=== PATIENT | male | born 1940 | race Caucasian/White ===

== ENCOUNTER 2024-06-04 21:13 | Inpatient (IN) | payer MEDICARE, BC ==
[~2024-06-04] VITALS: Ht 170.2 cm; Wt 68.5 kg
[2024-06-04] MEDS: IV NS 0.9% 500 ML BAG IV ONE (21:24)
[2024-06-04 22:05] LABS: BASOPHILS # (AUTO) 0.1 K/uL (0.0-0.2); BASOPHILS % (AUTO) 0.8 % (0.0-2.0); EOSINOPHILS # (AUTO) 0.4 K/uL (0.0-0.7); EOSINOPHILS % (AUTO) 5.5 % (0.0-6.0); HEMATOCRIT 40 % (39-51); HEMOGLOBIN 13.2 g/dL (13.5-17.5); INR 1.12 (0.91-1.10); LYMPHOCYTES # (AUTO) 1.4 K/uL (0.8-4.8); LYMPHOCYTES % (AUTO) 18.9 % (20.0-44.0); MEAN CORPUSCULAR HEMOGLOBIN 28 PG (26.0-33.0); MEAN CORPUSCULAR HGB CONC 33 g/dl (31.0-36.0); MEAN CORPUSCULAR VOLUME 84 fL (80-96); MONOCYTES # (AUTO) 0.7 K/uL (0.1-1.30); MONOCYTES % (AUTO) 9.7 % (2.0-12.0); NEUTROPHILS % (AUTO) 65.1 % (43.0-81.0); PARTIAL THROMBOPLASTIN TIME 26.5 SEC (24.3-34.3); PLATELET COUNT (AUTO) 218 K/uL (150-450); PROTHROMBIN TIME 11.8 SECS (9.2-11.1); RED BLOOD CELL COUNT(AUTO) 4.77 MIL/uL (4.5-6.0); RED CELL DISTRIBUTION WIDTH 13.8 % (11.5-15.0); WHITE BLOOD COUNT (AUTO) 7.7 K/uL (4.3-11.0)
[2024-06-04 22:06] LABS: CALCIUM, SERUM 8.2 mg/dL (8.5-10.1); CARBON DIOXIDE 30 mmol/L (21-32); CHLORIDE 108 mmol/L (98-107); CREATININE 1.2 mg/dL (0.6-1.3); GLUCOSE 84 mg/dL (74-106); POTASSIUM 3.9 mmol/L (3.5-5.1); SODIUM SERUM 138 mmol/L (136-145); UREA NITROGEN, BLOOD 18 mg/dL (7-18)
[2024-06-04 22:15] LABS: APPEARANCE,URINE CLEAR (CLEAR); BILIRUBIN,URINE NEGATIVE (NEGATIVE); BLOOD, URINE NEGATIVE Ery/uL (NEGATIVE); COLOR,URINE YELLOW (YELLOW); KETONES,URINE NEGATIVE (NEGATIVE); LEUKOCYTE ESTERASE ,URINE NEGATIVE (NEGATIVE); NITRITE, URINE NEGATIVE (NEGATIVE); PROTEIN,URINE NEGATIVE (NEGATIVE); UGLUCOSE NEGATIVE (NEGATIVE)
[2024-06-05] MEDS ORDERED: Z GUARD REMEDY 4 OZ OINT TP PRN
[2024-06-05] MEDS ORDERED: MAGNESIUM HYDROXIDE 30 ML UDC PO PRN
[2024-06-05] MEDS ORDERED: ACETAMINOPHEN 325 MG TABLET PO PRN
[2024-06-05] MEDS ORDERED: MAG HYDROX/AL HYDROX/SIMETH 30 ML UDC PO PRN
[2024-06-05] MEDS ORDERED: ONDANSETRON HCL/PF 4 MG/2 ML VIAL IVP PRN
[2024-06-05 00:56] LABS: ADD URINE CULTURE NO; RBC,URINE 0-2 /HPF (0-2); WBC,URINE NONE SEEN /HPF (0-3)
[2024-06-05 00:57] LABS: BACTERIA,URINE Few /HPF (None Seen)
[2024-06-05 02:46] VITALS: BP 143/75; TEMP 97.5; O2SAT 96
[2024-06-05 04:00] VITALS: BP 154/81; TEMP 98.1; O2SAT 98
[2024-06-05 06:36] LABS: BASOPHILS % (AUTO) 0.6 % (0.0-2.0); EOSINOPHILS # (AUTO) 0.4 K/uL (0.0-0.7); EOSINOPHILS % (AUTO) 6.2 % (0.0-6.0); HEMATOCRIT 39 % (39-51); HEMOGLOBIN 12.7 g/dL (13.5-17.5); LYMPHOCYTES # (AUTO) 1.2 K/uL (0.8-4.8); LYMPHOCYTES % (AUTO) 16.9 % (20.0-44.0); MEAN CORPUSCULAR HEMOGLOBIN 27 PG (26.0-33.0); MEAN CORPUSCULAR HGB CONC 32 g/dl (31.0-36.0); MEAN CORPUSCULAR VOLUME 85 fL (80-96); MONOCYTES # (AUTO) 0.8 K/uL (0.1-1.30); MONOCYTES % (AUTO) 10.8 % (2.0-12.0); NEUTROPHILS # (AUTO) 4.6 K/uL (1.8-8.9); NEUTROPHILS % (AUTO) 65.5 % (43.0-81.0); PLATELET COUNT (AUTO) 207 K/uL (150-450); RED BLOOD CELL COUNT(AUTO) 4.66 MIL/uL (4.5-6.0); RED CELL DISTRIBUTION WIDTH 13.5 % (11.5-15.0)
[2024-06-05 07:02] LABS: CHOLESTEROL 104 mg/dL (<200); HDL CHOLESTEROL 57 mg/dL (40-60); LDL 43 mg/dL (0-99); TRIGLYCERIDES 42 mg/dL (30-150)
[2024-06-05 07:09] LABS: CALCIUM, SERUM 8.1 mg/dL (8.5-10.1); CARBON DIOXIDE 27 mmol/L (21-32); CHLORIDE 109 mmol/L (98-107); GLUCOSE 77 mg/dL (74-106); PHOSPHORUS 3.3 mg/dL (2.5-4.9); POTASSIUM 4.4 mmol/L (3.5-5.1); SODIUM SERUM 142 mmol/L (136-145); UREA NITROGEN, BLOOD 17 mg/dL (7-18)
[2024-06-05 08:00] VITALS: BP 155/80; TEMP 97.7; O2SAT 100
[2024-06-05] MEDS ORDERED: BIMA2.5D6 EACHEYE (08:16)
[2024-06-05] MEDS ORDERED: CYCL30DR EACHEYE (08:16)
[2024-06-05] MEDS ORDERED: ATOR20TA PO (08:16)
[2024-06-05] MEDS ORDERED: ESCI20TA PO (08:16)
[2024-06-05] MEDS: PANTOPRAZOLE 40 MG TABLET.DR PO SCH (08:30)
[2024-06-05] MEDS ORDERED: IOHEXOL-350 100 ML VIAL IV ONE (08:36)
[2024-06-05] MEDS ORDERED: CT SWABBABLE VALVE TRANS SET 1 EA INFUS.SET MC ONE (08:37)
[2024-06-05] MEDS: ASPIRIN 81 MG TAB.CHEW PO SCH (09:32)
[2024-06-05 12:00] VITALS: BP_SYST 127; BP_SYST 143; BP_DIAS 73; BP_DIAS 86; TEMP 97.3; O2SAT 100
[2024-06-05] MEDS ORDERED: CHOL200059 PO (12:24)
[2024-06-05] MEDS ORDERED: FLUD0.1T PO (12:24)
[2024-06-05] MEDS ORDERED: ASCO-340 PO (12:24)
[2024-06-05] MEDS ORDERED: ASPI-1169 PO (12:24)
[2024-06-05] MEDS ORDERED: BIOT1TAB PO (12:24)
[2024-06-05] MEDS ORDERED: CYAN100T44 PO (12:24)
== END 2024-06-05 16:10 | disposition left against medical advice (07) | DRG 69 ==
LOC: ER 21:15 → TELE1 06-05 00:34
PROVIDERS: ADMIT Nurse Practitioner Family; ATTEND Internal Medicine
DX: G45.9 Transient cerebral ischemic attack, unspecified (principal); G93.41 Metabolic encephalopathy; I25.10 Atherosclerotic heart disease of native coronary artery without angina pectoris; I10 Essential (primary) hypertension; R29.700 NIHSS score 0; E78.5 Hyperlipidemia, unspecified; D64.9 Anemia, unspecified; H40.9 Unspecified glaucoma; Z79.82 Long term (current) use of aspirin; G30.9 Alzheimer's disease, unspecified; F02.80 Dementia in other diseases classified elsewhere, unspecified severity, without behavioral disturbance, psychotic disturbance, mood disturbance, and anxiety
CPT/HCPCS: 36415; 70450-TC; 70496-TC; 70498-TC; 71045-TC; 80048-TC; 80061-TC; 81001; 83735-TC; 84100-TC; 84484-TC; 85025-TC; 85730-TC; 93307-TC; 97112-TC; 97116-TC; 97530-TC; G0378; J7040; Q9967